=== PATIENT | male | born 1965 | race Caucasian/White ===

== ENCOUNTER 2022-05-13 11:37 | Emergency (ER) | payer OTHER ==
[2022-05-13 11:42] VITALS: BP 156/104; PULSE 80; RESP 18; TEMP 97.5; BMI 25.1
== END 2022-05-13 13:07 | disposition home or self-care (01) ==
LOC: FER 11:37
DX: Z03.821 Encounter for observation for suspected ingested foreign body ruled out (principal)
CPT/HCPCS: 70360-TC-FY; 71046-TC-FY; 99284-25